=== PATIENT | male | born 1990 | race Two or more races ===

== ENCOUNTER 2017-07-01 18:25 | Emergency (ER) | payer MEDICAID ==
[2017-07-01] MEDS ORDERED: Sodium Chloride 0.9% 1,000 ML IV ONE (19:04)
[2017-07-01] MEDS ORDERED: HYDROmorphone 0.5 MG/0.5 ML Syringe IVPUSH ONE (19:04)
--- NOTE | 2017-07-01 19:10 | EDM.PDOC ---
ED HPI GENERAL MEDICAL PROBLEM - General Chief Complaint: Abdominal Pain Stated Complaint: PAIN IN R SIDE Time Seen by Provider: 07/01/17 18:52 Source of Information: Reports: Patient History Limitations: Reports: No Limitations - History of Present Illness INITIAL COMMENTS - FREE TEXT/NARRATIVE: Patient is a 26-year-old male who presents ED complaining of right flank and right upper quadrant abdominal pain. Patient states symptoms have persisted for almost one month. Notes the pain is constant and as of today has grown increasingly worse. He has not taken anything for the pain. He is mildly nauseated with a few episodes of diarrhea. Denies any blood within the stool. States the pain is described as a sharp crampy sensation localized with no radiation. Pain at its worse is a 10 out of 10. Currently the pain 7 out of 10. Pain is worsened with palpation. There is no rash present. Has felt feverish today. Denies any pain with urination, history kidney stones, history constipation, or any additional complaints. He has not taken any medications for the discomfort. He has been seen by general surgeon and had a colonoscopy obtained with no abnormal findings. Stool cultures were essentially negative. They're unclear why the patient's currently experiencing the symptoms he has. He was told that if it may be his gallbladder and was supposed to come to the ED if the pain persists. Right Upper Flank Pain Score (Numeric/FACES): 8 - Related Data Allergies Allergy/AdvReac Type Severity Reaction Status Date / Time No Known Allergies Allergy Verified 07/01/17 18:42 Home Meds: Home Meds . [No Known Home Meds] 12/31/13 [History] Past Medical History - Past Surgical History HEENT Surgical History: Reports: Oral Surgery Male Surgical History: Reports: Vasectomy Social & Family History - Tobacco Use Smoking Status *Q: Never Smoker - Caffeine Use Caffeine Use: Reports: Coffee - Recreational Drug Use Recreational Drug Use: No ED ROS GENERAL - Review of Systems Review Of Systems: See Below Constitutional: Reports: Fever, Chills, Decreased Appetite HEENT: Reports: No Symptoms Respiratory: Reports: No Symptoms Cardiovascular: Reports: No Symptoms GI/Abdominal: Reports: Abdominal Pain, Diarrhea, Nausea. Denies: Bloody Stool, Constipation, Vomiting : Reports: No Symptoms Musculoskeletal: Reports: No Symptoms Neurological: Reports: No Symptoms ED EXAM, GI/ABD - Physical Exam Exam: See Below Exam Limited By: No Limitations General Appearance: Alert, WD/WN, No Apparent Distress Ears: Hearing Grossly Normal Nose: Normal Inspection Throat/Mouth: Normal Voice, No Airway Compromise Neck: Normal Inspection, Supple Respiratory/Chest: No Respiratory Distress, Lungs Clear, Normal Breath Sounds, No Accessory Muscle Use, Chest Non-Tender Cardiovascular: Normal Peripheral Pulses, Regular Rate, Rhythm, No Murmur GI/Abdominal Exam: Normal Bowel Sounds, Soft, No Organomegaly, No Distention, Tender (Positive Phillips sign. Negative McBurney's point. No CVA tenderness.) Back Exam: Normal Inspection Neurological: Alert, Oriented, CN II-XII Intact, Normal Cognition, No Motor/ Sensory Deficits Psychiatric: Normal Affect, Normal Mood Skin Exam: Warm, Dry, Intact, Normal Color, No Rash Course - Vital Signs Last Recorded V/S: Last Vital Signs Temp 97.1 F 07/01/17 18:38 Pulse 90 07/01/17 18:38 Resp 16 07/01/17 18:38 BP 116/88 07/01/17 18:38 Pulse Ox 95 07/01/17 18:38 - Orders/Labs/Meds Labs: Laboratory Tests 07/01/17 07/01/17 07/01/17 Range/Units 19:15 19:15 21:00 WBC 10.17 H (4.23-9.07) K/mm3 RBC 5.14 (4.63-6.08) M/mm3 Hgb 15.3 (13.7-17.5) gm/L Hct 45.8 (40.1-51.0) % MCV 89.1 (79.0-92.2) fl MCH 29.8 (25.7-32.2) pg MCHC 33.4 (32.2-35.5) g/dl RDW Std Deviation 44.5 H (35.1-43.9) fL Plt Count 213 (163-337) K/mm3 MPV 9.9 (9.4-12.3) fl Neut % (Auto) 71.3 H (34.0-67.9) % Lymph % (Auto) 22.2 (21.8-53.1) % Mccormick % (Auto) 4.8 L (5.3-12.2) % Eos % (Auto) 1.2 (0.8-7.0) Baso % (Auto) 0.3 (0.1-1.2) % Neut # (Auto) 7.25 H (1.78-5.38) K/mm3 Lymph # (Auto) 2.26 (1.32-3.57) K/mm3 Mccormick # (Auto) 0.49 (0.30-0.82) K/mm3 Eos # (Auto) 0.12 (0.04-0.54) K/mm3 Baso # (Auto) 0.03 (0.01-0.08) K/mm3 Sodium 141 (136-145) mEq/L Potassium 3.8 (3.5-5.1) mEq/L Chloride 106 (98-107) mEq/L Carbon Dioxide 26 (21-32) mEq/L Anion Gap 12.8 (5-15) BUN 13 (7-18) mg/dL Creatinine 1.1 (0.7-1.3) mg/dL Est Cr Clr Drug Dosing 101.77 mL/min Estimated GFR (MDRD) > 60 (>60) mL/min BUN/Creatinine Ratio 11.8 L (14-18) Glucose 91 (74-106) mg/dL Calcium 9.2 (8.5-10.1) mg/dL Total Bilirubin 0.4 (0.2-1.0) mg/dL Direct Bilirubin 0.10 (0.0-0.2) mg/dl GGT 17 (15-85) U/L AST 31 (15-37) U/L ALT 48 (16-63) U/L Alkaline Phosphatase 87 (46-116) U/L C-Reactive Protein 0.4 (<1.0) mg/dL Total Protein 7.7 (6.4-8.2) g/dl Albumin 3.8 (3.4-5.0) g/dl Globulin 3.9 gm/dL Albumin/Globulin Ratio 1.0 (1-2) Lipase 116 (73-393) U/L Urine Color Yellow (Yellow) Urine Appearance Clear (Clear) Urine pH 6.5 (5.0-8.0) Ur Specific [place] 1.025 (1.005-1.030) Urine Protein Negative (Negative) Urine Glucose (UA) Negative (Negative) Urine Ketones Negative (Negative) Urine Occult Blood Trace-intact H (Negative) Urine Nitrite Negative (Negative) Urine Bilirubin Negative (Negative) Urine Urobilinogen 0.2 (0.2-1.0) Ur Leukocyte Esterase Negative (Negative) Urine RBC 0-5 (0-5) /hpf Urine WBC 0-5 (0-5) /hpf Ur Epithelial Cells 0-5 (0-5) /hpf Urine Bacteria Not seen (FEW) /hpf Urine Mucus Not seen (FEW) /hpf Meds: Medications Discontinued Medications Generic Name Dose Route Start Last Admin Trade Name Jonn PRN Reason Stop Dose Admin Hydromorphone HCl 0.5 mg 07/01/17 19:04 07/01/17 19:39 Dilaudid IVPUSH 07/01/17 19:05 0.5 mg ONETIME ONE Administration Sodium Chloride 1,000 mls @ 999 mls/hr 07/01/17 19:04 07/01/17 19:38 Normal Saline IV 07/01/17 20:04 999 mls/hr ONETIME ONE Administration - Re-Assessments/Exams Free Text/Narrative Re-Assessment/Exam: IV established with normal saline 999 mL per hour and Dilaudid 0.5 mg IVP. Initial lab studies include CBC, chem 14, lipase, UA, CRP, GGT, and direct bilirubin. Also obtained ultrasound of the right upper quadrant. 07/01/17 21:20 Labs reviewed and were essentially normal. Ultrasound of the right upper quadrant did not reveal any abnormalities. Will discharge patient home with instructions as documented. Departure - Departure Time of Disposition: 21:20 Disposition: Home, Self-Care 01 Condition: Good Clinical Impression: Right upper quadrant abdominal pain - Discharge Information Instructions: Abdominal Pain, Adult, [id number] Referrals: Brennon Almeida Jr, MD [Primary Care Provider] - Forms: ED Department Discharge, ED Return to Work/School Form Additional Instructions: Labs and ultrasound did not reveal any acute abnormalities. At this point unclear etiology current complaint. Will have you follow-up with your primary care provider for further management for chronic side/abdominal pain. No driving this evening since receiving a sedative medication. Return to the ED if you develop any new or worsening symptoms.
--- NOTE | 2017-07-01 20:57 | US ---
Limited abdominal ultrasound: Multiple real-time images of the upper right abdomen were obtained. Liver shows no focal abnormality. Gallbladder shows no gallstones. No gallbladder wall thickening or biliary duct dilatation is seen. Right kidney shows no hydronephrosis or mass. Right kidney has a length of 9.4 cm. Pancreas is incompletely seen. Visualized portions of the pancreas is within normal limits. Impression: 1. No abnormality is identified on right upper quadrant abdominal ultrasound. Diagnostic code #1
== END 2017-07-01 21:30 | disposition home or self-care (01) ==
LOC: JD.ED 18:25
DX: R10.11 Right upper quadrant pain (principal)
CPT/HCPCS: 36415; 76705; 80053; 81001; 82248; 82977; 83690; 85025; 86140; 96361; 96374; 99284; J1170; J7040; 99283

== ENCOUNTER 2017-07-09 02:48 | Emergency (ER) | payer MEDICAID ==
[2017-07-09] MEDS ORDERED: Ondansetron 4 MG Tab.DIS PO ONE ×2 (03:36→05:27)
[2017-07-09] MEDS ORDERED: Lactated Ringers 1,000 ML IV ONE (03:43)
--- NOTE | 2017-07-09 03:45 | EDM.PDOC ---
ED HPI GENERAL MEDICAL PROBLEM - General Chief Complaint: Gastrointestinal Problem Stated Complaint: VOMITING/STOMACH PAIN Time Seen by Provider: 07/09/17 03:35 - History of Present Illness INITIAL COMMENTS - FREE TEXT/NARRATIVE: 27-year-old male presents to the emergency room with abdominal pain and nausea and vomiting. This started 15-30 minutes prior to arrival he developed significant abdominal discomfort followed by nausea and vomiting. He threw up once before arrival again at getting your and several times here. On Friday the patient was started on clarithromycin 500 mg twice a day Zithromax thousand milligrams twice a day and Pepcid twice daily for H. pylori. Patient has recently had a CAT scan of his abdomen and several other tests done H. pylori was diagnosed with a stool test according to the patient. Past medical history is otherwise unremarkable. Abdominal Pain Score (Numeric/FACES): 6 - Related Data Allergies Allergy/AdvReac Type Severity Reaction Status Date / Time No Known Allergies Allergy Verified 07/09/17 02:54 Home Meds: Home Meds Amoxicillin 1,000 mg PO BID #56 tab 07/09/17 [Rx] Azithromycin [Zithromax] 1,000 mg PO BID 07/09/17 [History] Clarithromycin 500 mg PO BID 07/09/17 [History] Lansoprazole [Prevacid] 30 mg PO BID 07/09/17 [History] Ondansetron [Zofran ODT] 4 mg PO Q4H PRN #12 tab.dis 07/09/17 [Rx] Past Medical History HEENT History: Reports: Impaired Vision Other HEENT History: Wears glasses Gastrointestinal History: Reports: Helicobacter Pylori - Past Surgical History HEENT Surgical History: Reports: Oral Surgery Male Surgical History: Reports: Vasectomy Social & Family History - Tobacco Use Smoking Status *Q: Never Smoker - Caffeine Use Caffeine Use: Reports: Coffee - Recreational Drug Use Recreational Drug Use: No ED ROS GENERAL - Review of Systems Review Of Systems: See Below Constitutional: Reports: No Symptoms. Denies: Fever, Chills HEENT: Reports: No Symptoms Respiratory: Reports: No Symptoms Cardiovascular: Reports: No Symptoms Endocrine: Reports: No Symptoms GI/Abdominal: Reports: Abdominal Pain, Nausea, Vomiting. Denies: Constipation, Diarrhea : Reports: No Symptoms Musculoskeletal: Reports: No Symptoms Skin: Reports: No Symptoms Neurological: Reports: No Symptoms ED EXAM, GI/ABD - Physical Exam Exam: See Below Exam Limited By: No Limitations General Appearance: Alert, Mild Distress (With nausea and several episodes of emesis) Head: Atraumatic, Normocephalic Neck: Normal Inspection, Supple, Non-Tender, Full Range of Motion Respiratory/Chest: No Respiratory Distress, Lungs Clear, Normal Breath Sounds Cardiovascular: Regular Rate, Rhythm, No Edema, No Murmur GI/Abdominal Exam: Normal Bowel Sounds, Soft, Other (He has diffuse discomfort) . No: Non-Tender, No Distention, Guarding, Rigid, Rebound, Tender Back Exam: Normal Inspection. No: CVA Tenderness (L), CVA Tenderness (R) Course - Vital Signs Last Recorded V/S: Last Vital Signs Temp 36.2 C 07/09/17 02:56 Pulse 93 07/09/17 02:56 Resp 16 07/09/17 02:56 BP 135/102 H 07/09/17 02:56 Pulse Ox 97 07/09/17 02:56 - Orders/Labs/Meds Orders: Active Orders 24 hr Category Date Time Status Ondansetron [Zofran ODT] Med 07/09/17 05:27 Once 4 mg PO ONETIME ONE Labs: Laboratory Tests 07/09/17 07/09/17 Range/Units 04:00 04:00 WBC 8.86 (4.23-9.07) K/mm3 RBC 5.23 (4.63-6.08) M/mm3 Hgb 15.5 (13.7-17.5) gm/L Hct 46.2 (40.1-51.0) % MCV 88.3 (79.0-92.2) fl MCH 29.6 (25.7-32.2) pg MCHC 33.5 (32.2-35.5) g/dl RDW Std Deviation 43.2 (35.1-43.9) fL Plt Count 213 (163-337) K/mm3 MPV 10.0 (9.4-12.3) fl Neutrophils % (Manual) 72 H (40-60) % Band Neutrophils % 0 (0-10) % Lymphocytes % (Manual) 22 (20-40) % Atypical Lymphs % 2 % Monocytes % (Manual) 3 (2-10) % Eosinophils % (Manual) 1 (0.8-7.0) % Basophils % (Manual) 0 L (0.2-1.2) Platelet Estimate Adequate Plt Morphology Comment Normal RBC Morph Comment Normal Sodium 142 (136-145) mEq/L Potassium 4.1 (3.5-5.1) mEq/L Chloride 107 (98-107) mEq/L Carbon Dioxide 27 (21-32) mEq/L Anion Gap 12.1 (5-15) BUN 14 (7-18) mg/dL Creatinine 1.1 (0.7-1.3) mg/dL Est Cr Clr Drug Dosing 100.87 mL/min Estimated GFR (MDRD) > 60 (>60) mL/min BUN/Creatinine Ratio 12.7 L (14-18) Glucose 123 H (74-106) mg/dL Calcium 8.8 (8.5-10.1) mg/dL Total Bilirubin 0.5 (0.2-1.0) mg/dL AST 21 (15-37) U/L ALT 36 (16-63) U/L Alkaline Phosphatase 85 (46-116) U/L Total Protein 7.6 (6.4-8.2) g/dl Albumin 3.6 (3.4-5.0) g/dl Globulin 4.0 gm/dL Albumin/Globulin Ratio 0.9 L (1-2) Lipase 129 (73-393) U/L Meds: Medications Discontinued Medications Generic Name Dose Route Start Last Admin Trade Name Freq PRN Reason Stop Dose Admin Lactated Ringer's 1,000 mls @ 999 mls/hr 07/09/17 03:43 07/09/17 04:08 Ringers, Lactated IV 07/09/17 04:43 999 mls/hr .BOLUS ONE Administration Ondansetron HCl 4 mg 07/09/17 03:36 07/09/17 03:44 Zofran Odt PO 07/09/17 03:37 4 mg ONETIME ONE Administration - Re-Assessments/Exams Free Text/Narrative Re-Assessment/Exam: 07/09/17 05:28 Patient is doing much better after the Zofran. He's received a liter of fluid abdominal pain is pretty much completely gone. Reviewed his medication she's taken a gram of Zithromax twice a day with clarithromycin 500 mg twice a day both these medications are extremely tough on the stomach and I suspect that was causing his discomfort at this point he is to continue the Prevacid continue the clarithromycin and stop Zithromax in place of the Zithromax the patient be started on amoxicillin 1 g twice a day or tingling days he is on a 14 day course of everything else. He has follow-up with his regular doctor later today. Departure - Departure Time of Disposition: 05:29 Disposition: Home, Self-Care 01 Clinical Impression: Dyspepsia, Nausea and vomiting - Discharge Information Prescriptions: Amoxicillin 1,000 mg PO BID #56 tab Ondansetron [Zofran ODT] 4 mg PO Q4H PRN #12 tab.dis PRN Reason: Nausea/Vomiting Referrals: Brennon Almeida Jr, MD [Primary Care Provider] - Forms: ED Department Discharge Additional Instructions: Return to emergency room if any questions problems worsening symptoms. Follow-up in clinic later today as scheduled. Stop the Zithromax! Start amoxicillin 1000 mg twice daily for [address] Continue the Prevacid continue the clarithromycin as prescribed. You've been given a prescription for Zofran this is the antinausea medication that helped in the emergency room use this as directed and only as needed - My Orders Last 24 Hours: My Active Orders 07/09/17 05:27 Ondansetron [Zofran ODT] 4 mg PO ONETIME ONE - Assessment/Plan Last 24 Hours: My Active Orders 07/09/17 05:27 Ondansetron [Zofran ODT] 4 mg PO ONETIME ONE
== END 2017-07-09 05:48 | disposition home or self-care (01) ==
LOC: JD.ED 02:48
DX: R10.13 Epigastric pain (principal); R11.2 Nausea with vomiting, unspecified
CPT/HCPCS: 36415; 80053; 83690; 85025; 96360; 99284; A9270; J7120; 99283

== ENCOUNTER 2018-09-01 20:23 | Emergency (ER) | payer BC ==
[2018-09-01] MEDS ORDERED: Ondansetron 4 MG/2 ML SDV IVPUSH ONE (21:04)
[2018-09-01] MEDS ORDERED: Famotidine 20 MG/2 ML SDV IVPUSH ONE (21:04)
[2018-09-01] MEDS ORDERED: HYDROmorphone 1 MG/ML Syringe IVPUSH ONE (21:04)
[2018-09-01] MEDS: Sodium Chloride 0.9% 10 ML Syringe FLUSH PRN ×2 (21:26→22:54)
[2018-09-01] MEDS ORDERED: LORazepam 2 MG/ML SDV IVPUSH ONE (22:46)
[2018-09-01] MEDS ORDERED: Ketorolac 30 MG/ML SDV IVPUSH SCH (23:00)
--- NOTE | 2018-09-01 23:49 | EDM.PDOC ---
ED HPI GENERAL MEDICAL PROBLEM - General Chief Complaint: Abdominal Pain Stated Complaint: RIGHT SIDE PAIN Time Seen by Provider: 09/01/18 20:48 Source of Information: Reports: Patient, RN Notes Reviewed - History of Present Illness INITIAL COMMENTS - FREE TEXT/NARRATIVE: 20-year-old male has been having abdominal pain off and on for about the past 10 days or so. He had a CT scan done last week at that did not show any major findings. He was doing okay and then became more ill yesterday and today. He now is vomited twice today and also having some watery type diarrhea. No fever or chills. He did have his gallbladder out about a year ago. No chest pain or difficulty breathing. No hx of recent abx prior to becoming ill with pain and diarrhea. Right Lower Abdomen Pain Score (Numeric/FACES): 10 - Related Data Allergies Allergy/AdvReac Type Severity Reaction Status Date / Time clarithromycin Allergy Vomiting Verified 09/01/18 20:48 Home Meds: Home Meds Omeprazole Magnesium [Prilosec Otc] 20 mg PO DAILY 09/01/18 [History] Past Medical History HEENT History: Reports: Impaired Vision Other HEENT History: Wears glasses Gastrointestinal History: Reports: GERD, Helicobacter Pylori - Past Surgical History HEENT Surgical History: Reports: Oral Surgery GI Surgical History: Reports: Cholecystectomy Male Surgical History: Reports: Vasectomy Social & Family History - Tobacco Use Smoking Status *Q: Never Smoker - Caffeine Use Caffeine Use: Reports: None - Recreational Drug Use Recreational Drug Use: No ED ROS GENERAL - Review of Systems Review Of Systems: See Below Constitutional: Denies: Fever, Chills HEENT: Denies: Sinus Problem, Throat Pain Respiratory: Denies: Shortness of Breath Cardiovascular: Denies: Chest Pain GI/Abdominal: Reports: Abdominal Pain, Diarrhea, Nausea, Vomiting Musculoskeletal: Reports: No Symptoms Skin: Reports: No Symptoms Neurological: Reports: No Symptoms ED EXAM, GI/ABD - Physical Exam Exam: See Below General Appearance: Alert, Mild Distress Eyes: Bilateral: Normal Appearance Throat/Mouth: Normal Inspection, Normal Oropharynx Head: Atraumatic. No: Facial Swelling Neck: Supple Respiratory/Chest: No Respiratory Distress, Lungs Clear, Normal Breath Sounds Cardiovascular: Regular Rate, Rhythm GI/Abdominal Exam: Soft, Tender (very mild generalized tenderness). No: Guarding, Rebound Back Exam: No: CVA Tenderness (L), CVA Tenderness (R) Extremities: Normal Inspection, Normal Range of Motion. No: Leg Pain Neurological: Alert, Oriented, No Motor/Sensory Deficits Skin Exam: Warm, Dry, Normal Color Course - Vital Signs Last Recorded V/S: Last Vital Signs Temp 97.8 F 09/01/18 20:36 Pulse 83 09/01/18 20:36 Resp 20 09/01/18 20:36 BP 133/84 09/01/18 20:36 Pulse Ox 99 09/01/18 20:36 - Orders/Labs/Meds Labs: Laboratory Tests 09/01/18 09/01/18 Range/Units 21:00 21:00 WBC 8.19 (4.23-9.07) K/mm3 RBC 5.51 (4.63-6.08) M/mm3 Hgb 16.5 (13.7-17.5) gm/L Hct 49.0 (40.1-51.0) % MCV 88.9 (79.0-92.2) fl MCH 29.9 (25.7-32.2) pg MCHC 33.7 (32.2-35.5) g/dl RDW Std Deviation 41.5 (35.1-43.9) fL Plt Count 202 (163-337) K/mm3 MPV 10.1 (9.4-12.3) fl Neutrophils % (Manual) 65 H (40-60) % Band Neutrophils % 0 (0-10) % Lymphocytes % (Manual) 28 (20-40) % Atypical Lymphs % 0 % Monocytes % (Manual) 5 (2-10) % Eosinophils % (Manual) 1 (0.8-7.0) % Basophils % (Manual) 1 (0.2-1.2) Platelet Estimate Adequate RBC Morph Comment Normal Sodium 142 (136-145) mEq/L Potassium 4.0 (3.5-5.1) mEq/L Chloride 105 (98-107) mEq/L Carbon Dioxide 27 (21-32) mEq/L Anion Gap 14.0 (5-15) BUN 11 (7-18) mg/dL Creatinine 1.3 (0.7-1.3) mg/dL Est Cr Clr Drug Dosing 65.33 mL/min Estimated GFR (MDRD) > 60 (>60) mL/min BUN/Creatinine Ratio 8.5 L (14-18) Glucose 97 (74-106) mg/dL Calcium 9.2 (8.5-10.1) mg/dL Total Bilirubin 0.7 (0.2-1.0) mg/dL AST 17 (15-37) U/L ALT 38 (16-63) U/L Alkaline Phosphatase 89 (46-116) U/L Total Protein 7.7 (6.4-8.2) g/dl Albumin 3.7 (3.4-5.0) g/dl Globulin 4.0 gm/dL Albumin/Globulin Ratio 0.9 L (1-2) Lipase 106 (73-393) U/L Meds: Medications Discontinued Medications Generic Name Dose Route Start Last Admin Trade Name Freq PRN Reason Stop Dose Admin Famotidine 20 mg 09/01/18 21:04 09/01/18 21:24 Pepcid IVPUSH 09/01/18 21:05 20 mg ONETIME ONE Administration Hydromorphone HCl 1 mg 09/01/18 21:04 09/01/18 21:24 Dilaudid IVPUSH 09/01/18 21:05 1 mg ONETIME ONE Administration Ketorolac Tromethamine 30 mg 09/01/18 23:00 09/01/18 22:52 Toradol IVPUSH 30 mg ONETIME SYEDA Administration Lorazepam 1 mg 09/01/18 22:46 09/01/18 22:54 Ativan IVPUSH 09/01/18 22:47 1 mg ONETIME ONE Administration Ondansetron HCl 4 mg 09/01/18 21:04 09/01/18 21:24 Zofran IVPUSH 09/01/18 21:05 4 mg ONETIME ONE Administration Sodium Chloride 10 ml 09/01/18 21:04 09/01/18 22:54 Saline Flush FLUSH 10 ml ASDIRECTED PRN Administration Keep Vein Open - Re-Assessments/Exams Free Text/Narrative Re-Assessment/Exam: 09/03/18 11:36 WBC, chem. and lipase normal, feels better after IV fluid and meds, discharge instr. as documented. Departure - Departure Time of Disposition: 23:47 Disposition: Home, Self-Care 01 Condition: Fair Clinical Impression: Abdominal pain Qualifiers: Abdominal location: generalized Qualified Code(s): R10.84 - Generalized abdominal pain Diarrhea Qualifiers: Diarrhea type: unspecified type Qualified Code(s): R19.7 - Diarrhea, unspecified - Discharge Information Instructions: Diarrhea, Adult, Abdominal Pain, Adult Referrals: Brennon Almeida Jr, MD [Primary Care Provider] - Forms: ED Department Discharge Additional Instructions: Clear liquids until tomorrow evening, then very careful simple bland diet small amounts at a time only as tolerated. Probiotic, available OTC twice daily for 1 week or until after symptoms have completely resolved, follow-up clinic with Holli Curtis or Dr. Almeida in 2-3 days for recheck, call tomorrow morning for appointment.
--- NOTE | 2018-09-02 06:32 | CR ---
Abdomen: Supine and upright views of the abdomen were obtained. Comparison: No prior abdominal x-ray. Calcifications seen within the pelvis most likely due to phleboliths. Surgical clips are seen from prior cholecystectomy. Bowel gas pattern is normal. No soft tissue abnormality is seen. Bony structures are unremarkable. Impression: 1. Incidental findings. Nothing acute seen on two-view abdominal x-ray. Diagnostic code #2
== END 2018-09-01 22:53 | disposition home or self-care (01) ==
LOC: JD.ED 20:23
DX: R19.7 Diarrhea, unspecified (principal); R10.84 Generalized abdominal pain; K21.9 Gastro-esophageal reflux disease without esophagitis; Z79.899 Other long term (current) drug therapy
CPT/HCPCS: 36415; 74019; 80053; 83690; 85007; 85027; 99285; J1170; J1885; J2060; J2405; J3490; 96365; 96366; 96375; 99284

== ENCOUNTER 2018-10-28 22:17 | Emergency (ER) | payer BC ==
[2018-10-28] MEDS ORDERED: Ondansetron 4 MG/2 ML SDV IVPUSH ONE (22:45)
[2018-10-28] MEDS ORDERED: Sodium Chloride 0.9% 1,000 ML IV STA (22:45)
[2018-10-28] MEDS ORDERED: Sodium Chloride 0.9% 10 ML Syringe FLUSH PRN (22:45)
--- NOTE | 2018-10-28 23:45 | EDM.PDOC ---
ED HPI GENERAL MEDICAL PROBLEM - General Chief Complaint: Gastrointestinal Problem Stated Complaint: FEVER/VOMITING/FEELING WEAK Time Seen by Provider: 10/28/18 22:33 Source of Information: Reports: Patient, Family History Limitations: Reports: No Limitations - History of Present Illness INITIAL COMMENTS - FREE TEXT/NARRATIVE: The patient presents with a cough, congestion and runny nose. He then developed nausea and vomiting later in the day. He also had a fever. Some of his family has been sick. He had his appendix out in August. A few days ago he had a couple trochar incisions that had some purulent drainage from them and now they are better. He does not have any abdominal pain. He has no dysuria. He has no chest pain or shortness of breath. Onset: Gradual Duration: Day(s): (2) Severity: Moderate Improves with: Reports: None Worsens with: Reports: None Associated Symptoms: Reports: Cough, Fever/Chills, Nausea/Vomiting. Denies: Chest Pain, Headaches, Shortness of Breath Abdomen Pain Score (Numeric/FACES): 3 - Related Data Allergies Allergy/AdvReac Type Severity Reaction Status Date / Time clarithromycin Allergy Vomiting Verified 09/01/18 20:48 Home Meds: Home Meds Omeprazole Magnesium [Prilosec Otc] 20 mg PO DAILY 09/01/18 [History] Oseltamivir [Tamiflu] 75 mg PO BID #10 cap 10/29/18 [Rx] Past Medical History HEENT History: Reports: Impaired Vision Other HEENT History: Wears glasses Gastrointestinal History: Reports: GERD, Helicobacter Pylori - Past Surgical History HEENT Surgical History: Reports: Oral Surgery GI Surgical History: Reports: Appendectomy, Cholecystectomy Male Surgical History: Reports: Vasectomy Social & Family History - Tobacco Use Smoking Status *Q: Never Smoker - Caffeine Use Caffeine Use: Reports: Coffee, Energy Drinks, Soda - Recreational Drug Use Recreational Drug Use: No ED ROS GENERAL - Review of Systems Review Of Systems: See Below Constitutional: Reports: Fever, Chills HEENT: Reports: Other (cough congestion and runny nose) Respiratory: Reports: Cough. Denies: Shortness of Breath Cardiovascular: Reports: No Symptoms Endocrine: Reports: No Symptoms GI/Abdominal: Reports: Nausea, Vomiting. Denies: Diarrhea : Reports: No Symptoms Musculoskeletal: Reports: No Symptoms ED EXAM, GI/ABD - Physical Exam Exam: See Below Exam Limited By: No Limitations General Appearance: Alert, No Apparent Distress Ears: Normal External Exam Nose: Normal Inspection Head: Atraumatic, Normocephalic Neck: Normal Inspection Respiratory/Chest: No Respiratory Distress, Lungs Clear, Normal Breath Sounds Cardiovascular: Regular Rate, Rhythm, No Edema, No Murmur GI/Abdominal Exam: Soft, Non-Tender, No Organomegaly, No Mass, Other (3 trochar scars with no redness or drainage and no pain) Back Exam: Normal Inspection Course - Vital Signs Last Recorded V/S: Last Vital Signs Temp 97.5 F 10/28/18 22:32 Pulse 118 H 10/28/18 22:32 Resp 20 10/28/18 22:32 BP 117/77 10/28/18 22:32 Pulse Ox 96 10/28/18 22:32 - Orders/Labs/Meds Orders: Active Orders 24 hr Category Date Time Status Peripheral IV Care [RC] . DIRECTED Care 10/28/18 22:45 Active Sodium Chloride 0.9% [Normal Saline] 1,000 ml Med 10/28/18 23:49 Active IV ONETIME Sodium Chloride 0.9% [Saline Flush] Med 10/28/18 22:45 Active 10 ml FLUSH ASDIRECTED PRN ED Antiemetic Medication Reflex [OM.PC] Stat Oth 10/28/18 22:45 Ordered Peripheral IV Insertion Adult [OM.PC] Stat Oth 10/28/18 22:45 Ordered Medication Orders Sodium Chloride (Normal Saline) 1,000 mls @ 1,000 mls/hr IV ONETIME ONE Stop: 10/29/18 00:48 Last Admin: 10/29/18 00:13 Dose: 1,000 mls/hr Sodium Chloride (Saline Flush) 10 ml FLUSH ASDIRECTED PRN PRN Reason: Keep Vein Open Last Admin: 10/28/18 23:11 Dose: 10 ml Labs: Laboratory Tests 10/28/18 10/28/18 10/28/18 Range/Units 23:02 23:02 23:03 WBC 6.63 (4.23-9.07) K/mm3 RBC 5.49 (4.63-6.08) M/mm3 Hgb 16.4 (13.7-17.5) gm/L Hct 48.9 (40.1-51.0) % MCV 89.1 (79.0-92.2) fl MCH 29.9 (25.7-32.2) pg MCHC 33.5 (32.2-35.5) g/dl RDW Std Deviation 44.0 H (35.1-43.9) fL Plt Count 193 (163-337) K/mm3 MPV 10.2 (9.4-12.3) fl Neut % (Auto) 76.8 H (34.0-67.9) % Lymph % (Auto) 12.2 L (21.8-53.1) % [place] % (Auto) 10.0 (5.3-12.2) % Eos % (Auto) 0.5 L (0.8-7.0) Baso % (Auto) 0.2 (0.1-1.2) % Neut # (Auto) 5.10 (1.78-5.38) K/mm3 Lymph # (Auto) 0.81 L (1.32-3.57) K/mm3 [place] # (Auto) 0.66 (0.30-0.82) K/mm3 Eos # (Auto) 0.03 L (0.04-0.54) K/mm3 Baso # (Auto) 0.01 (0.01-0.08) K/mm3 Sodium 139 (136-145) mEq/L Potassium 3.7 (3.5-5.1) mEq/L Chloride 103 (98-107) mEq/L Carbon Dioxide 24 (21-32) mEq/L Anion Gap 15.7 H (5-15) BUN 16 (7-18) mg/dL Creatinine 1.3 (0.7-1.3) mg/dL Est Cr Clr Drug Dosing 87.35 mL/min Estimated GFR (MDRD) > 60 (>60) mL/min BUN/Creatinine Ratio 12.3 L (14-18) Glucose 102 (74-106) mg/dL Calcium 9.1 (8.5-10.1) mg/dL Total Bilirubin 0.8 (0.2-1.0) mg/dL AST 35 (15-37) U/L ALT 64 H (16-63) U/L Alkaline Phosphatase 99 (46-116) U/L C-Reactive Protein 2.6 H* (<1.0) mg/dL Total Protein 8.1 (6.4-8.2) g/dl Albumin 3.9 (3.4-5.0) g/dl Globulin 4.2 gm/dL Albumin/Globulin Ratio 0.9 L (1-2) Urine Color Yellow (Yellow) Urine Appearance Clear (Clear) Urine pH 6.0 (5.0-8.0) Ur Specific [place] > or = 1.030 (1.005-1.030) Urine Protein 1+ H (Negative) Urine Glucose (UA) Negative (Negative) Urine Ketones Trace H (Negative) Urine Occult Blood Trace-intact H (Negative) Urine Nitrite Negative (Negative) Urine Bilirubin 1+ H (Negative) Urine Urobilinogen 0.2 (0.2-1.0) Ur Leukocyte Esterase Negative (Negative) Urine RBC 0-5 (0-5) /hpf Urine WBC 0-5 (0-5) /hpf Ur Squamous Epith Cells 5-10 H (0-5) /hpf Urine Bacteria Moderate H (FEW) /hpf Hyaline Casts 0-5 (0-5) /lpf Urine Mucus Many H (FEW) /hpf Meds: Medications Generic Name Dose Route Start Last Admin Trade Name Freq PRN Reason Stop Dose Admin Sodium Chloride 1,000 mls @ 1,000 mls/hr 10/28/18 23:49 10/29/18 00:13 Normal Saline IV 10/29/18 00:48 1,000 mls/hr ONETIME ONE Administration Sodium Chloride 10 ml 10/28/18 22:45 10/28/18 23:11 Saline Flush FLUSH 10 ml ASDIRECTED PRN Administration Keep Vein Open Discontinued Medications Generic Name Dose Route Start Last Admin Trade Name Freq PRN Reason Stop Dose Admin Acetaminophen 975 mg 10/28/18 23:49 10/28/18 23:54 Tylenol PO 10/28/18 23:50 975 mg NOW ONE Administration Sodium Chloride 1,000 mls @ 1,000 mls/hr 10/28/18 22:45 10/28/18 23:10 Normal Saline IV 10/28/18 23:44 1,000 mls/hr .BOLUS STA Administration Ondansetron HCl 4 mg 10/28/18 22:45 10/28/18 23:10 Zofran IVPUSH 10/28/18 22:46 4 mg ONETIME ONE Administration - Re-Assessments/Exams Free Text/Narrative Re-Assessment/Exam: 10/28/18 23:47 I ordered an IV NS 1L bolus, zofran, and labs. His CBC looks good. His UA shows no UTI but he is dehydrated. He has a headache so I ordered some tylenol 975mg by mouth. 10/29/18 00:47 His CRP is 2.6. The CMP looks good. He is influenza B positive. I will get him on some tamiflu and zofran for nausea and vomiting. Departure - Departure Time of Disposition: 00:55 Disposition: Home, Self-Care 01 Condition: Good Clinical Impression: Influenza B, Dehydration Nausea and vomiting Qualifiers: Vomiting type: unspecified Vomiting Intractability: non-intractable Qualified Code(s): R11.2 - Nausea with vomiting, unspecified - Discharge Information *PRESCRIPTION DRUG MONITORING PROGRAM REVIEWED*: No *COPY OF PRESCRIPTION DRUG MONITORING REPORT IN PATIENT BRIGITTE: No Prescriptions: Oseltamivir [Tamiflu] 75 mg PO BID #10 cap Referrals: Brennon Almeida Jr, MD [Primary Care Provider] - 1 Week Forms: ED Department Discharge, ED Return to Work/School Form Additional Instructions: Take the tamiflu 2 times per day for 5 days. Take the zofran every 6 hours as needed for nausea and vomiting. Take motrin or tylenol for any fever or pain. Drink plenty of fluids. Please return if you are worse. - My Orders Last 24 Hours: My Active Orders 10/28/18 22:45 Peripheral IV Care [RC] . DIRECTED Sodium Chloride 0.9% [Saline Flush] 10 ml FLUSH ASDIRECTED PRN ED Antiemetic Medication Reflex [OM.PC] Stat Peripheral IV Insertion Adult [OM.PC] Stat 10/28/18 23:49 Sodium Chloride 0.9% [Normal Saline] 1,000 ml IV ONETIME - Assessment/Plan Last 24 Hours: My Active Orders 10/28/18 22:45 Peripheral IV Care [RC] . DIRECTED Sodium Chloride 0.9% [Saline Flush] 10 ml FLUSH ASDIRECTED PRN ED Antiemetic Medication Reflex [OM.PC] Stat Peripheral IV Insertion Adult [OM.PC] Stat 10/28/18 23:49 Sodium Chloride 0.9% [Normal Saline] 1,000 ml IV ONETIME
[2018-10-28] MEDS ORDERED: Sodium Chloride 0.9% 1,000 ML IV ONE (23:49)
[2018-10-28] MEDS ORDERED: Acetaminophen 325 MG Tab PO ONE (23:49)
[2018-10-29] MEDS ORDERED: Oseltamivir 75 MG Cap PO ONE (00:48)
== END 2018-10-29 01:15 | disposition home or self-care (01) ==
LOC: JD.ED 22:17
DX: J10.1 Influenza due to other identified influenza virus with other respiratory manifestations (principal); E86.0 Dehydration; K21.9 Gastro-esophageal reflux disease without esophagitis; Z79.899 Other long term (current) drug therapy; Z88.1 Allergy status to other antibiotic agents
CPT/HCPCS: 36415; 80053; 81001; 85025; 86140; 87804; 96361; 96374; 99284; A9270; J2405; J7040

== ENCOUNTER 2018-12-10 23:37 | Emergency (ER) | payer BC ==
--- NOTE | 2018-12-11 01:15 | EDM.PDOC ---
ED HPI GENERAL MEDICAL PROBLEM - General Chief Complaint: ENT Problem Stated Complaint: SORE THROAT Time Seen by Provider: 12/11/18 01:02 Source of Information: Reports: Patient, RN Notes Reviewed History Limitations: Reports: No Limitations - History of Present Illness INITIAL COMMENTS - FREE TEXT/NARRATIVE: The patient states that he has had a sore throat for about one week. Initially the pain was felt bilaterally, but over the past day or so it is felt on the left side of his throat. It is painful for him to swallow. The patient states that he has been sneezing, but no recent fever. The patient states that he took Tylenol Cold and flu, and that it helped, but that he took it again later, and it did not help. The patient states that he had strep throat once, when he was 8 years old. The patient's PCP is Dr. Brennon Almeida. - Related Data Allergies Allergy/AdvReac Type Severity Reaction Status Date / Time clarithromycin Allergy Vomiting Verified 09/01/18 20:48 Past Medical History HEENT History: Reports: Impaired Vision Other HEENT History: Wears glasses Gastrointestinal History: Reports: GERD (untreated) Endocrine/Metabolic History: Reports: Obesity/BMI 30+ - Past Surgical History HEENT Surgical History: Reports: Oral Surgery (wisdom teeth extraction) GI Surgical History: Reports: Appendectomy, Cholecystectomy (2017) Male Surgical History: Reports: Vasectomy Social & Family History - Tobacco Use Smoking Status *Q: Never Smoker - Caffeine Use Caffeine Use: Reports: Energy Drinks, Soda - Alcohol Use Alcohol Use History: Yes Alcohol Use Frequency: Socially - Recreational Drug Use Recreational Drug Use: No - Living Situation & Occupation Living situation: Reports: , with Spouse, with Family (4 kids) 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 ED EXAM, ENT - Physical Exam Exam: See Below Exam Limited By: No Limitations General Appearance: Alert, WD/WN, No Apparent Distress Eye Exam: Bilateral Eye: EOMI, Normal Inspection Ears: Normal External Exam, Normal Canal, Hearing Grossly Normal, Normal TMs Nose: Other (Bilateral nasal mucosa edema) Mouth/Throat: Normal Inspection, Normal Gums, Normal Lips, Normal Oropharynx ( No oropharyngeal swelling or significant erythema), Normal Teeth. No: Tonsillar Exudates, Tonsillar Swelling Head: Atraumatic, Normocephalic Neck: Normal Inspection, Supple, Non-Tender, Full Range of Motion. No: Lymphadenopathy (L), Lymphadenopathy (R) Course - Vital Signs Last Recorded V/S: Last Vital Signs Temp 35.8 C 12/10/18 23:43 Pulse 86 12/10/18 23:43 Resp 16 12/10/18 23:43 BP 126/88 12/10/18 23:43 Pulse Ox 99 12/10/18 23:43 - Orders/Labs/Meds Orders: Active Orders 24 hr Category Date Time Status CULTURE STREP A CONFIRMATION [RM] Stat Lab 12/10/18 23:50 Results Rapid Strep w/culture conf [STREP SCRN A RAPID W CULT Lab 12/11/18 00:40 Results CONF] [] Stat - Re-Assessments/Exams Free Text/Narrative Re-Assessment/Exam: 12/11/18 01:11 The patient's rapid strep test is negative. I do not see any oropharyngeal swelling or significant erythema that would be concerning for peritonsillar cellulitis or retropharyngeal abscess. The patient has not had a fever, and I do not find any submandibular or cervical lymphadenopathy. The patient appears to be suffering from viral pharyngitis. I explained that there are no medicines that we can give to get rid of viral pharyngitis - it will have to run its course. Departure - Departure Time of Disposition: 01:12 Disposition: Home, Self-Care 01 Condition: Good Clinical Impression: Viral pharyngitis - Discharge Information *PRESCRIPTION DRUG MONITORING PROGRAM REVIEWED*: Not Applicable *COPY OF PRESCRIPTION DRUG MONITORING REPORT IN PATIENT BRIGITTE: Not Applicable Instructions: Pharyngitis, [id number] Referrals: Brennon Almeida Jr, MD [Primary Care Provider] - Forms: ED Department Discharge Additional Instructions: You were seen in the emergency room for 1 week of a sore throat. Workup in the ER included a rapid strep test, which returned negative. You do not have strep throat. Based on your history, physical exam, and rapid strep test, you are most likely suffering from viral pharyngitis. Unfortunately, there are no medicines to get rid of viral pharyngitis - it will have to run its course. You may treat symptoms of your sore throat with [id number] Tylenol or ibuprofen. Consider also Chloraseptic spray and warm salt water gargles. Follow-up with your PCP, Dr. Brennon Almeida, as needed. If any other problems, please do not hesitate to return to the ER. - My Orders Last 24 Hours: My Active Orders 12/10/18 23:50 CULTURE STREP A CONFIRMATION [RM] Stat 12/11/18 00:40 Rapid Strep w/culture conf [STREP SCRN A RAPID W CULT CONF] [] Stat - Assessment/Plan Last 24 Hours: My Active Orders 12/10/18 23:50 CULTURE STREP A CONFIRMATION [RM] Stat 12/11/18 00:40 Rapid Strep w/culture conf [STREP SCRN A RAPID W CULT CONF] [] Stat
== END 2018-12-11 01:19 | disposition home or self-care (01) ==
LOC: JD.ED 23:37
DX: J02.9 Acute pharyngitis, unspecified (principal); E66.9 Obesity, unspecified; Z88.1 Allergy status to other antibiotic agents; Z98.890 Other specified postprocedural states; Z90.49 Acquired absence of other specified parts of digestive tract
CPT/HCPCS: 87081; 87430; 99281; 99283

== ENCOUNTER 2019-07-08 23:47 | Emergency (ER) | payer BC ==
[2019-07-09] MEDS ORDERED: Oseltamivir 75 MG Cap PO ONE (02:21)
--- NOTE | 2019-07-09 02:23 | EDM.PDOC ---
ED HPI GENERAL MEDICAL PROBLEM - General Chief Complaint: Fever Stated Complaint: FEVER Time Seen by Provider: 07/09/19 01:57 Source of Information: Reports: Patient History Limitations: Reports: No Limitations - History of Present Illness INITIAL COMMENTS - FREE TEXT/NARRATIVE: Mr. Plummer is a very pleasant 29-year-old man with a past medical history significant for untreated GERD, states that he developed a cough productive of yellow/green sputum, a decreased appetite, and some nausea and vomiting this past 07/07/2019, a headache yesterday, , 07/08/2019, then a neck ache, body aches, body weakness, lightheadedness, and dyspnea today. He states that he felt hot between 17:00 and 18:00 this evening. No recent constipation, diarrhea, or urinary symptoms. No recent sore throat. The patient reports that a coworker developed similar symptoms on Friday, 2019. The patient states that he has been taking DayQuil, NyQuil, and Tylenol, without significant improvement in his symptoms. Here in the ED, the patient is found to be slightly tachycardic, afebrile, with an oxygen saturation of 94% on room air. The patient's PCP is Dr. Brennon Almeida. He did not receive an influenza vaccine this season, but agreed to receive one here today. Headache Pain Score (Numeric/FACES): 7 - Related Data Allergies Allergy/AdvReac Type Severity Reaction Status Date / Time clarithromycin Allergy Vomiting Verified 07/09/19 00:55 Home Meds: Home Meds Oseltamivir [Tamiflu] 1 cap PO Q12H #9 cap 07/09/19 [Rx] Past Medical History HEENT History: Reports: Impaired Vision Other HEENT History: wears glasses Gastrointestinal History: Reports: GERD (untreated) Endocrine/Metabolic History: Reports: Obesity/BMI 30+ - Past Surgical History HEENT Surgical History: Reports: Oral Surgery (wisdom teeth extraction) GI Surgical History: Reports: Appendectomy, Cholecystectomy (2017) Male Surgical History: Reports: Vasectomy Social & Family History - Tobacco Use Smoking Status *Q: Never Smoker - Caffeine Use Caffeine Use: Reports: Coffee - Alcohol Use Alcohol Use History: Yes Alcohol Use Frequency: Socially - Recreational Drug Use Recreational Drug Use: No - Living Situation & Occupation Living situation: Reports: , with Spouse, with Family (4 kids) 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 ED EXAM, GENERAL - Physical Exam Exam: See Below Exam Limited By: No Limitations General Appearance: Alert, WD/WN, No Apparent Distress Eye Exam: Bilateral Eye: EOMI, Normal Inspection Ears: Normal External Exam, Normal Canal, Hearing Grossly Normal, Normal TMs Nose: Normal Inspection, Normal Mucosa, No Blood Throat/Mouth: Normal Inspection, Normal Lips, Normal Teeth, Normal Gums, Normal Oropharynx, Normal Voice, No Airway Compromise Head: Atraumatic, Normocephalic Neck: Normal Inspection, Supple, Non-Tender, Full Range of Motion. No: Lymphadenopathy (L), Lymphadenopathy (R) Respiratory/Chest: No Respiratory Distress, Lungs Clear, Normal Breath Sounds, No Accessory Muscle Use Cardiovascular: Normal Peripheral Pulses, Regular Rate, Rhythm, No Edema, No Gallop, No JVD, No Murmur, No Rub Peripheral Pulses: 4+: Radial (L), Radial (R) GI/Abdominal: Normal Bowel Sounds, Soft, Non-Tender, No Organomegaly, No Distention, No Abnormal Bruit, No Mass (Male) Exam: Deferred Rectal (Males) Exam: Deferred Back Exam: Normal Inspection, Full Range of Motion, NT Extremities: Normal Inspection, Normal Range of Motion, No Pedal Edema, Normal Capillary Refill Neurological: Alert, Oriented, Normal Cognition, No Motor/Sensory Deficits Psychiatric: Normal Affect Skin Exam: Warm, Dry, Intact, Normal Color, No Rash Course - Vital Signs Last Recorded V/S: Last Vital Signs Temp 37.6 C 07/09/19 00:50 Pulse 107 H 07/09/19 00:50 Resp 20 07/09/19 00:50 BP 116/68 07/09/19 00:50 Pulse Ox 94 L 07/09/19 00:50 - Orders/Labs/Meds Orders: Active Orders 24 hr Category Date Time Status Influenza Vaccine Charge [RC] .DISCHARGE Care 07/09/19 02:21 Active Meds: Medications Discontinued Medications Generic Name Dose Route Start Last Admin Trade Name Freq PRN Reason Stop Dose Admin Influenza Virus Vaccine 1 each 07/09/19 02:21 Pharmacy To Dose - Influenza Vaccine IM 07/09/19 02:22 ONETIME ONE Influenza Virus Vaccine 60 mcg 07/09/19 02:45 07/09/19 02:45 Fluzone Quad [id number] Syringe IM 07/09/19 02:46 60 mcg .ONCE ONE Administration Oseltamivir Phosphate 75 mg 07/09/19 02:21 07/09/19 02:34 Tamiflu PO 07/09/19 02:22 75 mg ONETIME ONE Administration - Re-Assessments/Exams Free Text/Narrative Re-Assessment/Exam: 07/09/19 02:18 2-view chest radiograph appears to be grossly normal. The cardiac silhouette is within normal limits. No pulmonary vascular congestion. No pleural effusions. No focal infiltrate. No pneumothorax. Formal read per the Radiologist pending. The patient's influenza swab has returned negative. While the patient's influenza swab is negative, clinically, the patient is likely suffering from influenza. He is closing in on the 48 hour period of time where Tamiflu might be of benefit, but he opted to start it. I will submit a prescription to complete a 5-day course. In addition, I'm recommending that the patient take inxo-hri-[id number] ibuprofen as needed for body aches. I'm recommending that he avoid [id number]-zra-[id number] cough and cold remedies, as they have been shown to be of no benefit. The patient will be given an influenza vaccine prior to discharge. Departure - Departure Time of Disposition: :20 Disposition: Home, Self-Care 01 Condition: Good Clinical Impression: Influenza - Discharge Information *PRESCRIPTION DRUG MONITORING PROGRAM REVIEWED*: Not Applicable *COPY OF PRESCRIPTION DRUG MONITORING REPORT IN PATIENT BRIGITTE: Not Applicable Prescriptions: Oseltamivir [Tamiflu] 1 cap PO Q12H #9 cap Instructions: Influenza, Adult, [id number] Referrals: Brennon Almeida Jr, MD [Primary Care Provider] - Forms: ED Department Discharge Additional Instructions: You were seen in the emergency room for 2 days of cough, decreased appetite and some nausea and vomiting, and one day of headache, neck ache, body aches, shortness of breath, lightheadedness, and feeling hot. Workup in the ER included a chest x-ray and an influenza swab. Your chest x-ray was normal. You do not have pneumonia. Your influenza swab returned negative, however, that does not mean that you don' t have influenza, as the sensitivity of the influenza swab is not very good. Based on your history, physical examination, and ER tests, you are most likely suffering from influenza. You have been started on the anti-influenza medicine Tamiflu, and a prescription for Tamiflu has been sent to [facility], located in the [facility] across the [address] from the hospital. Take one tablet of Tamiflu every 12 hours, starting this afternoon, 07/09/2019, as prescribed. In addition to Tamiflu, you may take lbjc-rfm-[id number] ibuprofen, 3 tablets (600 mg) up to every 8 hours, as needed for body aches and discomfort. As discussed, we recommend against you taking pnji-ktu-gzdiozh cough and cold remedies, as they have been shown to be of no benefit. If any other problems, please do not hesitate to return to the ER. Sepsis Event Note - Evaluation Sepsis Screening Result: No Definite Risk - Focused Exam Date Exam was Performed: 07/09/19 Time Exam was Performed: 19:21 - My Orders Last 24 Hours: My Active Orders 07/09/19 02:21 Influenza Vaccine Charge [RC] .DISCHARGE - Assessment/Plan Last 24 Hours: My Active Orders 07/09/19 02:21 Influenza Vaccine Charge [RC] .DISCHARGE
[2019-07-09] MEDS ORDERED: FLU Vacc QS2019-20(6MOS+)/PF 60 MCG/0.5 ML SYRINGE IM ONE (02:45)
--- NOTE | 2019-07-09 09:07 | CR ---
Chest: Two views of the chest were obtained. Comparison: No previous chest imaging was available. Heart size and mediastinum are normal. Lungs are clear. Bony structures are unremarkable. Impression: 1. Nothing acute is seen on two-view chest x-ray. Diagnostic code #1 This report was dictated in [place] Standard Time
== END 2019-07-09 02:49 | disposition home or self-care (01) ==
LOC: JD.ED 23:47
DX: J11.1 Influenza due to unidentified influenza virus with other respiratory manifestations (principal); E66.9 Obesity, unspecified; Z68.35 Body mass index [BMI] 35.0-35.9, adult; Z88.1 Allergy status to other antibiotic agents; Z23 Encounter for immunization
CPT/HCPCS: 71046; 87804; 90471; 90686; 99285; A9270; 99283; G0008

== ENCOUNTER 2021-05-06 11:59 | Emergency (ER) | payer BC ==
[2021-05-06] MEDS ORDERED: diphenhydrAMINE 50 MG/ML SDV IVPUSH PRN (12:25)
[2021-05-06] MEDS ORDERED: methylPREDNISolone Sodium Succinate 125 MG/2 ML SDV IVPUSH PRN (12:25)
[2021-05-06] MEDS ORDERED: Famotidine 20 MG/2 ML SDV IVPUSH PRN (12:25)
[2021-05-06] MEDS ORDERED: Sodium Chloride 0.9% 10 ML Syringe FLUSH PRN (12:25)
[2021-05-06] MEDS ORDERED: EPINEPHrine 1 MG/ML SDV IM PRN (12:25)
[2021-05-06] MEDS ORDERED: Ondansetron 4 MG/2 ML SDV IVPUSH ONE (12:28)
[2021-05-06] MEDS ORDERED: Loperamide 2 MG Cap PO ONE (12:28)
[2021-05-06] MEDS ORDERED: Sodium Chloride 0.9% 10 ML Syringe FLUSH SCH (12:30)
[2021-05-06] MEDS ORDERED: Sodium Chloride 0.9% 1,000 ML IV ONE (12:31)
--- NOTE | 2021-05-06 12:32 | EDM.PDOC ---
ED HPI GENERAL MEDICAL PROBLEM - General Chief Complaint: Gastrointestinal Problem Stated Complaint: COVID+ NAUSEA Time Seen by Provider: 05/06/21 12:07 Source of Information: Reports: Patient, RN Notes Reviewed History Limitations: Reports: No Limitations - History of Present Illness INITIAL COMMENTS - FREE TEXT/NARRATIVE: Patient is a 30-year-old male who presents to the ER for evaluation of his COVID-19 symptoms. States he was symptomatic on Friday, April 30, 2021, got tested for COVID-19 at the walk-in clinic and was found to be positive. Patient states that he has been faring okay for the week however he has had issues with nausea/vomiting, and diarrhea. States that he is only been able to eat 1 pop tart at a time, and a few bites of soup for the most part. States that over the last day or 2 however he is not even really been able to keep any sort of fluids down. He was concerned that he might be getting too dehydrated. Patient is not really complaining of any major cough, or shortness of breath. Vitals are stable at the time of triage, O2 sats are on the low side of normal around 91-92% on room air. Patient states that he did have asthma when he was a younger child, and BMI is 33. - Related Data Allergies Allergy/AdvReac Type Severity Reaction Status Date / Time clarithromycin Allergy Vomiting Verified 05/06/21 12:20 Home Meds: Home Meds Ondansetron [Zofran ODT] 4 mg PO Q8H PRN #15 tab.dis 05/06/21 [Rx] dexAMETHasone [Decadron] 6 mg PO DAILY 10 Days #10 tablet 05/06/21 [Rx] Past Medical History HEENT History: Reports: Impaired Vision Other HEENT History: wears glasses Respiratory History: Reports: Asthma Gastrointestinal History: Reports: GERD Endocrine/Metabolic History: Reports: Obesity/BMI 30+ - Infectious Disease History Infectious Disease History: Reports: Novel Coronavirus (04/30/21) - Past Surgical History HEENT Surgical History: Reports: Oral Surgery GI Surgical History: Reports: Appendectomy, Cholecystectomy Male Surgical History: Reports: Vasectomy Social & Family History - Tobacco Use Tobacco Use Status *Q: Never Tobacco User - Caffeine Use Caffeine Use: Reports: Coffee - Recreational Drug Use Recreational Drug Use: No - Living Situation & Occupation Living situation: Reports: , with Spouse, with Family (4 kids) 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 ED EXAM, GI/ABD - Physical Exam Exam: See Below Exam Limited By: No Limitations General Appearance: Alert, WD/WN, No Apparent Distress Respiratory/Chest: No Respiratory Distress, Lungs Clear, No Accessory Muscle Use, Chest Non-Tender, Decreased Breath Sounds (bilaterally) Cardiovascular: Normal Peripheral Pulses, Regular Rate, Rhythm, No Edema GI/Abdominal Exam: Normal Bowel Sounds, Soft, Non-Tender, No Distention, No Mass Extremities: Normal Inspection, Normal Capillary Refill Neurological: Alert, Oriented, Normal Cognition, No Motor/Sensory Deficits Psychiatric: Normal Affect, Normal Mood Skin Exam: Warm, Dry, Intact, Normal Color, No Rash Course - Vital Signs Last Recorded V/S: Last Vital Signs Temp 100.2 F 05/06/21 12:16 Pulse 87 05/06/21 14:00 Resp 40 H 05/06/21 14:00 BP 104/74 05/06/21 14:00 Pulse Ox 86 L 05/06/21 14:00 - Orders/Labs/Meds Orders: Active Orders 24 hr Category Date Time Status Peripheral IV Care [RC] . DIRECTED Care 05/06/21 12:26 Active Vital Signs [RC] Q15M Care 05/06/21 12:26 Active Chest 1V Frontal [CR] Stat Exams 05/06/21 12:25 Taken EPINEPHrine [Adrenalin] Med 05/06/21 12:25 Active 0.3 mg IM ASDIRECTED PRN Famotidine [Pepcid] Med 05/06/21 12:25 Active 20 mg IVPUSH ASDIRECTED PRN Sodium Chloride 0.9% [Saline Flush] Med 05/06/21 12:25 Active 10 ml FLUSH ASDIRECTED PRN Sodium Chloride 0.9% [Saline Flush] Med 05/06/21 12:30 Active 30 ml FLUSH ASDIRECTED diphenhydrAMINE [Benadryl] Med 05/06/21 12:25 Active 50 mg IVPUSH ASDIRECTED PRN methylPREDNISolone Sod Succ [Solu-MEDROL] Med 05/06/21 12:25 Active 125 mg IVPUSH ASDIRECTED PRN Peripheral IV Insertion Adult [OM.PC] Routine Oth 05/06/21 12:25 Ordered Medication Orders Diphenhydramine HCl (Diphenhydramine 50 Mg/Ml Sdv) 50 mg IVPUSH ASDIRECTED PRN PRN Reason: hypersensitivity reaction Epinephrine HCl (Epinephrine 1 Mg/Ml Sdv) 0.3 mg IM ASDIRECTED PRN PRN Reason: hypersensitivity reaction Famotidine (Famotidine 20 Mg/2 Ml Sdv) 20 mg IVPUSH ASDIRECTED PRN PRN Reason: hypersensitivity reaction Methylprednisolone Sodium Succinate (Methylprednisolone Sodium Succinate 125 Mg/2 Ml Sdv) 125 mg IVPUSH ASDIRECTED PRN PRN Reason: hypersensitivity reaction Last Admin: 05/06/21 12:38 Dose: 125 mg Documented by: FOSTCHR Sodium Chloride (Sodium Chloride 0.9% 10 Ml Syringe) 30 ml FLUSH ASDIRECTED SYEDA Sodium Chloride (Sodium Chloride 0.9% 10 Ml Syringe) 10 ml FLUSH ASDIRECTED PRN PRN Reason: Keep Vein Open Labs: Laboratory Tests 05/06/21 05/06/21 05/06/21 Range/Units 12:23 12:23 12:23 WBC 6.15 (4.23-9.07) K/mm3 RBC 5.99 (4.63-6.08) M/mm3 Hgb 18.0 H D (13.7-17.5) gm/dl Hct 52.7 H (40.1-51.0) % MCV 88.0 (79.0-92.2) fl MCH 30.1 (25.7-32.2) pg MCHC 34.2 (32.2-35.5) g/dl RDW Std Deviation 42.0 (35.1-43.9) fL Plt Count 136 L (163-337) K/mm3 MPV 10.3 (9.4-12.3) fl Neut % (Auto) 71.4 H (34.0-67.9) % Lymph % (Auto) 23.1 (21.8-53.1) % [place] % (Auto) 5.0 L (5.3-12.2) % Eos % (Auto) 0 L (0.8-7.0) Baso % (Auto) 0.2 (0.1-1.2) % Neut # (Auto) 4.39 (1.78-5.38) K/mm3 Lymph # (Auto) 1.42 (1.32-3.57) K/mm3 [place] # (Auto) 0.31 (0.30-0.82) K/mm3 Eos # (Auto) 0.00 L (0.04-0.54) K/mm3 Baso # (Auto) 0.01 (0.01-0.08) K/mm3 Sodium 135 L (136-145) mEq/L Potassium 4.5 (3.5-5.1) mEq/L Chloride 97 L (98-107) mEq/L Carbon Dioxide 25 (21-32) mEq/L Anion Gap 17.5 H (5-15) BUN 22 H (7-18) mg/dL Creatinine 1.7 H (0.7-1.3) mg/dL Est Cr Clr Drug Dosing 65.60 mL/min Estimated GFR (MDRD) 48 (>60) mL/min BUN/Creatinine Ratio 12.9 L (14-18) Glucose 133 H (70-99) mg/dL Calcium 8.5 (8.5-10.1) mg/dL Magnesium 2.3 (1.8-2.4) mg/dL Total Bilirubin 0.4 (0.2-1.0) mg/dL AST 109 H (15-37) U/L ALT 79 H (16-63) U/L Alkaline Phosphatase 69 (46-116) U/L C-Reactive Protein 1.3 H* (<1.0) mg/dL Total Protein 8.3 H (6.4-8.2) g/dl Albumin 3.8 (3.4-5.0) g/dl Globulin 4.5 gm/dL Albumin/Globulin Ratio 0.8 L (1-2) Meds: Medications Generic Name Dose Route Start Last Admin Trade Name Freq PRN Reason Stop Dose Admin Diphenhydramine HCl 50 mg 05/06/21 12:25 Diphenhydramine 50 Mg/Ml Sdv IVPUSH ASDIRECTED PRN hypersensitivity reaction Epinephrine HCl 0.3 mg 05/06/21 12:25 Epinephrine 1 Mg/Ml Sdv IM ASDIRECTED PRN hypersensitivity reaction Famotidine 20 mg 05/06/21 12:25 Famotidine 20 Mg/2 Ml Sdv IVPUSH ASDIRECTED PRN hypersensitivity reaction Methylprednisolone Sodium Succinate 125 mg 05/06/21 12:25 05/06/21 12:38 Methylprednisolone Sodium Succinate 125 Mg/2 Ml Sdv IVPUSH 125 mg ASDIRECTED PRN Administration hypersensitivity reaction Sodium Chloride 30 ml 05/06/21 12:30 Sodium Chloride 0.9% 10 Ml Syringe FLUSH ASDIRECTED SYEDA Sodium Chloride 10 ml 05/06/21 12:25 Sodium Chloride 0.9% 10 Ml Syringe FLUSH ASDIRECTED PRN Keep Vein Open Discontinued Medications Generic Name Dose Route Start Last Admin Trade Name Freq PRN Reason Stop Dose Admin CASIRIVIMAB/IMDEVIMAB 10 ml/ 110 mls @ 220 mls/hr 05/06/21 12:25 05/06/21 13:06 Sodium Chloride IV 05/06/21 12:54 220 mls/hr ONETIME ONE Administration Sodium Chloride 1,000 mls @ 999 mls/hr 05/06/21 12:31 05/06/21 12:37 Normal Saline IV 05/06/21 13:31 999 mls/hr ONETIME ONE Administration Sodium Chloride Confirm 05/06/21 12:33 05/06/21 12:44 Normal Saline Administered 05/06/21 12:34 Not Given Dose 1,000 mls @ as directed .ROUTE .STK-MED ONE Loperamide HCl 4 mg 05/06/21 12:28 05/06/21 12:38 Loperamide 2 Mg Cap PO 05/06/21 12:29 4 mg ONETIME ONE Administration Ondansetron HCl 4 mg 05/06/21 12:28 05/06/21 12:38 Ondansetron 4 Mg/2 Ml Sdv IVPUSH 05/06/21 12:29 4 mg ONETIME ONE Administration - Re-Assessments/Exams Free Text/Narrative Re-Assessment/Exam: 05/06/21 12:32 Patient presents to the ER for evaluation of his COVID-19 symptoms. He is mainly complaining of the GI issues with nausea and vomiting/diarrhea. We'll go ahead and give him some IV fluids, some IV nausea meds, 1 dose of loperamide, get some basic labs a chest x-ray. I spoke with the patient to provide information about monoclonal antibody treatment. I offered them the "Patient and caregiver EUA monoclonal antibody fact sheet" to read and review. I stated that the drug has been approved by an emergency use authorization (EUA) process and has not been fully FDA reviewed or approved. The patient meets the EUA requirements. I discussed there are other potential treatment options that are currently not FDA approved to treat COVID-19. I did offer an opportunity to ask questions and all questions were answered. The patient voiced understanding and agreed to pr oceed with the treatment. 05/06/21 13:24 All patient's labs have resulted, and are essentially unremarkable. There are mild abnormalities but nothing that needs emergent management at this time. CRP is only mildly elevated at 1.3. We will reassess the patient at bedside to see if his nausea is any better, try to get him to eat a light meal. 05/06/21 14:32 Patient has been sleeping, fluids are done at this time. O2 sats have been slightly low room air at around 85% at its lowest when he sleeping, and about 88% when he is up and talking with us. Patient was placed on 2 L via nasal cannula, and O2 sats did get better at about 94 to 95%. I will try to send him home with some oral Zofran. Departure - Departure Time of Disposition: 14:34 Disposition: Home, Self-Care 01 Condition: Good Clinical Impression: COVID-19 - Discharge Information *PRESCRIPTION DRUG MONITORING PROGRAM REVIEWED*: No *COPY OF PRESCRIPTION DRUG MONITORING REPORT IN PATIENT BRIGITTE: No Prescriptions: dexAMETHasone [Decadron] 6 mg PO DAILY 10 Days #10 tablet Ondansetron [Zofran ODT] 4 mg PO Q8H PRN #15 tab.dis PRN Reason: Nausea Instructions: 10 Things You Can Do to Manage Your COVID-19 Symptoms at Home - [facility] (01/12/2021) Referrals: PCP,None [Primary Care Provider] - Forms: ED Department Discharge Additional Instructions: You were seen in the ER today for ongoing and/or worsening respiratory/GI symptoms. Your chest x-ray showed no signs of pneumonia at this time. Your oxygen levels were low, and did get as low as 85% on room air while at rest. This does qualify you for home oxygen, orders have been sent for this; you will need to wear oxygen at 2 L via nasal cannula until you can be reassessed by your primary care provider once your COVID-19 has started to resolve. You have also been given a prescription for oral steroids. This will be 1 tablet daily for 10 days. Your prescription was electronically sent to [facility] located near [facility], this pharmacy is only open from 12 to 4 PM on Sundays, you will need to go there during this timeframe to obtain this medication and take as prescribed. You were given IV monoclonal antibody therapy at today's visit, this medication is thought to work by making you a little less sick, and helps to decrease the length of time that you are sick. Please try to increase your oral fluid intake, and eat multiple small meals throughout the day, to keep yourself healthy. You need to keep yourself nourished in order to fight off this disease. You can try a liquid diet like gatorade/powerade as well to get your electrolytes. You were given a prescription for oral Zofran as well you may take 1 tablet dissolvable under your tongue every 8 hours for nausea. You may take 500 mg Tylenol every hours 6 hours for pain/fever relief. Do not exceed 4000 mg Tylenol in a 24-hour time span. However, running a fever is your body's natural response to illness, and it allows the body to develop antibodies to disease, we are recommending trying to limit the use of Tylenol as much as possible to allow your body's natural immune response. Recommend you obtain a pulse oximeter and monitor your oxygen levels at home, you should place the monitor on your finger, and sit in a calm, quiet position for a few minutes and then record the number that is on the screen. If this consistently below 90% on room air without movement, this would be cause for concern to come back to the hospital for further management of your COVID-19 disease. Please follow all guidance set forth from [facility], regarding isolation purposes for your disease process. General isolation times are 10 days from when you started being symptomatic. Sepsis Event Note (ED) - Evaluation Sepsis Screening Result: No Definite Risk - Focused Exam Vital Signs: Vital Signs Temp Pulse Resp BP Pulse Ox 05/06/21 14:00 87 40 H 104/74 86 L 05/06/21 13:08 113 H 40 H 113/74 89 L 05/06/21 12:16 100.2 F 120 H 20 111/82 90 L - My Orders Last 24 Hours: My Active Orders 05/06/21 12:25 Chest 1V Frontal [CR] Stat EPINEPHrine [Adrenalin] 0.3 mg IM ASDIRECTED PRN Famotidine [Pepcid] 20 mg IVPUSH ASDIRECTED PRN Sodium Chloride 0.9% [Saline Flush] 10 ml FLUSH ASDIRECTED PRN diphenhydrAMINE [Benadryl] 50 mg IVPUSH ASDIRECTED PRN methylPREDNISolone Sod Succ [Solu-MEDROL] 125 mg IVPUSH ASDIRECTED PRN Peripheral IV Insertion Adult [OM.PC] Routine 05/06/21 12:26 Peripheral IV Care [RC] . DIRECTED Vital Signs [RC] Q15M 05/06/21 12:30 Sodium Chloride 0.9% [Saline Flush] 30 ml FLUSH ASDIRECTED - Assessment/Plan Last 24 Hours: My Active Orders 05/06/21 12:25 Chest 1V Frontal [CR] Stat EPINEPHrine [Adrenalin] 0.3 mg IM ASDIRECTED PRN Famotidine [Pepcid] 20 mg IVPUSH ASDIRECTED PRN Sodium Chloride 0.9% [Saline Flush] 10 ml FLUSH ASDIRECTED PRN diphenhydrAMINE [Benadryl] 50 mg IVPUSH ASDIRECTED PRN methylPREDNISolone Sod Succ [Solu-MEDROL] 125 mg IVPUSH ASDIRECTED PRN Peripheral IV Insertion Adult [OM.PC] Routine 05/06/21 12:26 Peripheral IV Care [RC] . DIRECTED Vital Signs [RC] Q15M 05/06/21 12:30 Sodium Chloride 0.9% [Saline Flush] 30 ml FLUSH ASDIRECTED
[2021-05-06] MEDS ORDERED: Sodium Chloride 0.9% 1,000 ML ONE (12:33)
--- NOTE | 2021-05-06 15:00 | CR ---
Chest: Frontal view of the chest was obtained. Comparison: Prior chest x-ray of 07/09/19. Slight density is noted within the left mid lung as well as mild increased density within the left lower lung. Minimal density is seen within the right lung base. Heart size and mediastinum are normal. Bony structures appear grossly intact. Impression: 1. Slight densities within both lungs suspicious for mild COVID pneumonia. Diagnostic code #3
== END 2021-05-06 15:10 | disposition home or self-care (01) ==
LOC: JD.ED 11:59
DX: U07.1 COVID-19 (principal); R11.2 Nausea with vomiting, unspecified; E66.9 Obesity, unspecified; Z68.33 Body mass index [BMI] 33.0-33.9, adult; Z88.1 Allergy status to other antibiotic agents
CPT/HCPCS: 36415; 71045; 80053; 83735; 85025; 86140; 96361; 96374; 96375; 99284; A9270; J2405; J2930; J7030; M0243; Q0243

== ENCOUNTER 2021-12-17 16:50 | Emergency (ER) | payer BC ==
[2021-12-17] MEDS ORDERED: Ketorolac 15 MG/ML SDV IVPUSH ONE (18:24)
[2021-12-17] MEDS ORDERED: Ondansetron 4 MG/2 ML SDV IVPUSH ONE (18:24)
[2021-12-17] MEDS ORDERED: Lactated Ringers 1,000 ML IV ONE (18:25)
[2021-12-17] MEDS ORDERED: Iopamidol 612 MG/ML 100 ML Bottle IVPUSH ONE (19:19)
[2021-12-17] MEDS ORDERED: Iopamidol 612 MG/ML 50 ML SDV IVPUSH ONE (19:19)
[2021-12-17] MEDS ORDERED: Sodium Chloride 0.9% 10 ML Syringe FLUSH PRN (19:29)
== END 2021-12-17 21:30 | disposition home or self-care (01) ==
LOC: JD.ED 16:50
DX: K57.32 Diverticulitis of large intestine without perforation or abscess without bleeding (principal); Z88.1 Allergy status to other antibiotic agents; E66.9 Obesity, unspecified; Z68.39 Body mass index [BMI] 39.0-39.9, adult
CPT/HCPCS: 36415; 74177; 80053; 81001; 83605; 85025; 85610; 96361; 96374; 96375; 99284; J1885; J2405; J3490; J7120; Q9967; 99283

== ENCOUNTER 2024-08-24 19:05 | Emergency (ER) | payer BC, OTHER ==
[2024-08-24] MEDS: Ondansetron 4 MG Tab.DIS PO ONE (20:06)
== END 2024-08-24 20:49 | disposition home or self-care (01) ==
LOC: JD.ED 19:05
DX: S16.1XXA Strain of muscle, fascia and tendon at neck level, initial encounter (principal); S50.02XA Contusion of left elbow, initial encounter; S80.02XA Contusion of left knee, initial encounter; S70.01XA Contusion of right hip, initial encounter; M62.838 Other muscle spasm; J45.909 Unspecified asthma, uncomplicated; E66.9 Obesity, unspecified; Z68.41 Body mass index [BMI] 40.0-44.9, adult; Z86.16 Personal history of COVID-19; Z90.49 Acquired absence of other specified parts of digestive tract; Z88.8 Allergy status to other drugs, medicaments and biological substances; Z79.84 Long term (current) use of oral hypoglycemic drugs; Z79.899 Other long term (current) drug therapy; V49.49XA Driver injured in collision with other motor vehicles in traffic accident, initial encounter
CPT/HCPCS: 70450; 72125; 99284; A9270